=== PATIENT | female | born 1950 | race Caucasian/White ===

== ENCOUNTER 2022-04-02 03:58 | Observation (INO) ==
--- NOTE | 2022-04-02 04:40 | Emergency Department Note ---
Upper Extremity HPI General Chief Complaint: Extremity Injury, Upper Stated Complaint: upper extremity injury Time Seen by Provider: 04/02/22 04:07 Source: patient and EMS Mode of arrival: EMS Limitations: no limitations History of Present Illness HPI Narrative: Narrative: Patient presents to the ED with complaints of left arm pain that started shortly prior to arrival. Apparently patient was over at [facility] and was recently discharged from the ED after a fall where she was diagnosed with UTI and was started him on Macrobid. She was getting out of the cab at her hotel after being discharged when she fell landing on her left arm. Patient is having 10/10 pain in her left arm. EMS was called and they noted deformity so they brought her to our ED instead of going back to [facility]. Patient denies head trauma, loss of consciousness, syncope, near syncope, dizziness, loss of sensation of her left upper extremity, loss of motor function left upper extremity. States it is difficult to move secondary to pain. She reports that she has had left shoulder replacement about 3 years ago over at [facility]. Patient denies any other alleviating or aggravating factors. Related Data Home Medications Medication Instructions Recorded Confirmed aspirin 81 mg tablet,delayed 81 mg PO DAILY 01/12/16 09/15/21 release calcium carbonate 500 mg calcium 500 mg PO BID 03/01/17 09/15/21 (1,250 mg) chewable tablet (Calcium 500) cholecalciferol (vitamin D3) 50 2,000 unit PO DAILY 06/21/18 09/15/21 mcg (2,000 unit) capsule multivitamin with minerals-folic 200 mcg PO DAILY 12/11/18 09/15/21 acid 200 mcg chewable tablet oxycodone 5 mg tablet 5 mg PO Q6H PRN 06/18/21 09/15/21 sodium phosphates 19 gram-7 118 ml MA ONCE PRN 06/18/21 09/15/21 gram/118 mL enema (Fleet Enema) fluoxetine 20 mg capsule 40 mg PO DAILY 08/16/21 09/15/21 Previous Rx's Medication Instructions Recorded lisinopril 10 mg tablet 10 mg PO DAILY #30 tabs 08/03/20 nitrofurantoin 100 mg PO Q12H 5 days #10 caps 07/07/21 monohydrate/macrocrystals 100 mg capsule (Macrobid) allopurinol 100 mg tablet 100 mg PO QDAY #90 tabs 08/11/21 amitriptyline 25 mg tablet 25 mg PO QDAY #90 tabs 08/11/21 atorvastatin 80 mg tablet 80 mg PO DAILY #90 tabs 08/11/21 furosemide 20 mg tablet 20 mg PO DAILY #90 tabs 08/11/21 levothyroxine 100 mcg tablet 100 mcg PO DAILY #90 tabs 08/11/21 hydrocodone 5 mg-acetaminophen 325 1 tab PO QHS PRN pain #30 tabs 11/01/21 mg tablet gabapentin 800 mg tablet 800 mg PO TID #90 tabs 12/06/21 Allergies Allergy/AdvReac Type Severity Reaction Status Date / Time morphine Allergy Hives Verified 04/02/22 04:13 Review of Systems ROS ROS Narrative: Narrative: All systems ED: reviewed and negative except as stated. PFSH Narrative Patient History Narrative: Narrative: Medical/Surgical/Family History All Active Problems (Updated 04/02/22 @ 05:41 by Obdulio Mcdowell DO) Humeral fracture (Acute) Fall (Acute) Unspecified urinary incontinence (Acute) Anxiety state (Chronic) Chronic pain (Chronic) Degenerative joint disease (Chronic) Depressive disorder (Chronic) Gastroesophageal reflux (Chronic) Hypertension, essential (Chronic) Hyperlipidemia (Chronic) Hypothyroidism (Chronic) Insomnia (Chronic) Lumbago (Chronic) Myocardial infarction (Chronic) Obstructive sleep apnea (Chronic) Vitamin D deficiency (Chronic) H/O angioplasty (Chronic) Cobalamin deficiency (Chronic) Hallux valgus (acquired) (Chronic) Mallet toe (Chronic) Onychomycosis (Chronic) Cataract, left eye (Chronic) Presence of intraocular lens (Chronic) Gout (Chronic) Podagra (Chronic) Syncope and Collapse (Chronic) Coronary artery disease due to calcified coronary lesion (Chronic) H/O gastric bypass (Chronic) History of back surgery (Chronic) S/P TRAVIS-BSO (Chronic) H/O hemicolectomy (Chronic) Osteopenia (Chronic) Malaise and fatigue (Chronic) Iron deficiency anemia (Chronic) Right foot pain (Chronic) Right hip pain (Chronic) Low back pain potentially associated with radiculopathy (Chronic) Diabetes mellitus with neuropathy (Chronic) History of obesity (Chronic) History of stroke (Chronic) Lumbar stenosis with neurogenic claudication (Chronic) Chronic kidney disease (CKD) stage G3b/A1, moderately decreased glomerular filtration rate (GFR) between 30-44 mL/min/1.73 square meter and albuminuria creatinine ratio less than 30 mg/g (Chronic) Secondary hyperparathyroidism of renal origin (Chronic) Dysuria (Chronic) Right knee pain (Chronic) Fall (Chronic) Left shoulder pain (Chronic) Left arm weakness (Chronic) Arthritis of shoulder (Chronic) Injury of muscle or tendon of left rotator cuff (Chronic) Radiculopathy of lumbar region (Chronic) Idiopathic peripheral neuropathy (Chronic) Heart disease, unspecified (Chronic) Obesity, unspecified (Chronic) History of tobacco use (Chronic) Acute URI (Chronic) Cystitis (Chronic) UTI (urinary tract infection) (Chronic) COVID-19 (Chronic) 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, subsequent encounter (Chronic) Chronic obstructive pulmonary disease with (acute) exacerbation (Chronic) DM type 2 (diabetes mellitus, type 2) (Chronic) Atherosclerotic heart disease of [place] coronary artery without angina pectoris (Chronic) History of fall (Chronic) Contusion of other part of head, subsequent encounter (Chronic) Sprain of left rotator cuff capsule, subsequent encounter (Chronic) Pressure ulcer of left buttock, unstageable (Chronic) Muscle weakness (generalized) (Chronic) Other abnormalities of gait and mobility (Chronic) Aphasia (Chronic) Heart failure (Chronic) Physical deconditioning (Acute) Medical History Acute URI Adult body mass index 50.0-59.9 03/09/2015 - Corazon Smith, HOUSING CASE MANAGER - [facility] After cataract of left eye not obscuring vision 05/11/2015-[place] Anxiety state Aphasia Arthritis of shoulder Atherosclerotic heart disease of [place] coronary artery without angina pectoris Blepharitis of right upper eyelid 05/11/2015-[place] Blepharitis of right upper eyelid 05/11/2015-[place] Bronchitis Cataract, left eye 05/11/2015-[place] Cholelithiasis Chronic kidney disease Stage 3 06/30/14 Chronic kidney disease (CKD) stage G3b/A1, moderately decreased glomerular filtration rate (GFR) between 30-44 mL/min/1.73 square meter and albuminuria creatinine ratio less than 30 mg/g Chronic obstructive pulmonary disease with (acute) exacerbation Chronic pain Cobalamin deficiency Congestive heart failure LVEF 60% on echo Grade 1 Diastolic dysfunction. Clinically staable. Contusion of other part of head, subsequent encounter Coronary artery disease Coronary artery disease due to calcified coronary lesion Stent x 3. COVID-19 Cystitis Degenerative joint disease Depressive disorder Diabetes mellitus with neuropathy Diabetic foot ulcer 06/14/15-[place]. History of Diarrhea DM type 2 (diabetes mellitus, type 2) Dysuria Elbow sprain Fall Foot pain Leg pain at the site of the Wound vac Treat with hydrocodone 7.5-325 one pill tid, This is not a chr narctic medications but used for acute purpose Gastritis and gastroduodenitis Without mention of hemorrhage, hx of GI bleed r/t NSAID induced Gastroesophageal reflux Gastrointestinal bleeding ulcers had 2 blood transfusions Gout Hallux valgus (acquired) 06/14/15-[place] Heart disease, unspecified Heart failure History of fall History of obesity 200 lb weight loss History of open sigmoidectomy 1980 Resection History of stroke History of tobacco use Hyperlipidemia Hypertension, essential Hypothyroidism Idiopathic peripheral neuropathy Injury of muscle or tendon of left rotator cuff Insomnia Iron deficiency anemia Left arm weakness Left shoulder pain Low back pain potentially associated with radiculopathy Lumbago Lumbar stenosis with neurogenic claudication Malaise and fatigue Mallet toe 06/14/15-[place] Medicare annual wellness visit, initial Morbid obesity Planning to have gastric bypass surgery. Undergoing evaluation, cleared from her glucose and syrup weigher for same. Muscle weakness (generalized) Myocardial infarction with stent placement in 2002 and 2008 Obesity, unspecified Obstructive sleep apnea 02/12/2014 [facility] 79 cpap with nasal mask, heated, 13cms h2o. Onychomycosis 06/14/15-[place] Open wound of knee, leg (except thigh), and ankle 09/03/2013 wound in dressing in the left lower leg, in dressing, seen in ER yesterday, good pulses, no e/o infection in the surrounding area. pulses below good. To be seen in the wound care clinic this sunday with Dr Davis on minocycline for now. Open wound of knee, leg, and ankle 12/29/2013 except leg Osteopenia Other abnormalities of gait and mobility Physical deconditioning Podagra Postsurgical malabsorption 03/09/2015 - Corazon Vulcandy, HOUSING CASE MANAGER - [facility] Presence of intraocular lens 05/11/2015-[place] Pressure ulcer of left buttock, unstageable Radial head fracture Radiculopathy of lumbar region Renal failure 03/31/14 Right foot pain Right hip pain Right knee pain Secondary hyperparathyroidism of renal origin Shortness of breath Sprain and strain of shoulder and upper arm Sprain and strain of wrist Sprain of left rotator cuff capsule, subsequent encounter Syncope and Collapse orthostatic in nature. 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, subsequent e ncounter Ulcer of toe due to diabetes mellitus Pt has two ulcers, one on the right 5th toe, with scab formation, second on the left 2nd toe, both are not infected, but given the overall poor condition of the feet, dystrophic and hypertrophic nails, bunion on the right foot, I think she will benefit from a hadoop admin eval and management. Ref to podiatry. UTI (urinary tract infection) Vitamin D deficiency Wrist sprain Surgical History Abnormal colonoscopy Few small diverticula were present in the cecum. A sessile polyp 4 mm in diameter with hyperplastic in apperance was seen in the mid sigmoid. Uncomp licated hemorroid seen in the rectum. Multiple diverticula were present from the proximal descending colon to distal sigmoid colon. Cholecystectomy planned 12/05/2012 Dr. Guerrero H/O angioplasty 2002, 2008 H/O carpal tunnel repair Right Hand H/O gastric bypass H/O hemicolectomy H/O: hysterectomy History of back surgery History of cataract surgery History of foot surgery Right foot-03/01/19 History of neck surgery ACDF Previous back surgery 3 back surgeries S/P TRAVIS-BSO Family History Unknown Atherosclerosis of coronary artery Essential hypertension unknown Cerebrovascular accident Hypothyroidism Grandmother Cancer Maternal Mother Dementia High blood pressure Daughter Diabetes mellitus Father High blood pressure Social History Smoking Status: Former smoker Alcohol Intake Frequency: does not drink Substance Use: does not use Exam Narrative Narrative: Narrative: General Limitations: no limitations General appearance: Present alert Expanded Head Head image: 1. Contusion 2. Healing laceration Neck Neck: Present tenderness Chest Chest: Present normal inspection; Absent tenderness Respiratory Respiratory: Present normal lung sounds bilaterally; Absent respiratory distress Cardiovascular Cardiovascular: Present regular rate and normal rhythm Adbominal Abdominal: Present soft; Absent tenderness Expanded Upper Extremity Shoulder: Present tenderness Arm: Present tenderness and deformity Elbow: Present normal inspection Neurological Neurological: Present alert and oriented X3 Psychiatric Psychiatric: Present normal affect and normal mood Skin Skin: Present warm (WNL) and intact Course Course Course Narrative: Patient was evaluated for left arm pain. X-rays show the patient had a periprosthetic comminuted displaced humeral fracture. Case was discussed with on-call orthopedic surgeon, Dr. Choe who recommend that patient be placed in a sling to follow-up with surgeon who previously did her left shoulder replacement, Dr. Feldman. Unfortunate patient uses a walker and cannot ambulate with a fractured arm. Our hospitalist are capped out on their patient census. Attempted to transfer patient over to [facility] where she had her previous surgery and where she was seen earlier tonight but unfortunately they do not have any beds available. Patient will be housed in the ED. Case management has been consulted. We will go ahead and consult hospitalist for medical management of patient's comorbid conditions. Plan was discussed with patient and she expressed verbal understanding and agreement. Case signed out to Dr. Foy to determine final disposition. Reevaluation(s) Reevaluation #1: Patient remains hemodynamically stable. No new complaints at this time. Time: 05:10 Consultations Consultation #1: Case discussed with on-call orthopedic surgeon, Dr. Choe, who recommends that patient simply be placed in a sling and discharged home to follow-up with the surgeon who performed her shoulder replacement, Dr. Thomas Time: 05:20 Consultation #2: Case discussed with Dr. Pierce, hospitalist, who has agreed to consult on patient for medical management of her comorbid conditions Time: 06:48 Vital Signs Vital signs: Vital Signs Temperature 97.9 F 04/02/22 04:10 Pulse Rate 74 04/02/22 04:10 Respiratory Rate 20 04/02/22 04:10 Blood Pressure 156/114 04/02/22 04:10 Pulse Oximetry (%) 100 04/02/22 04:10 Oxygen Delivery Method 04/02/22 04:10 Temperature 97.9 F 04/02/22 04:10 Pulse Rate 65 04/02/22 06:38 Respiratory Rate 20 04/02/22 04:10 Blood Pressure 153/95 04/02/22 06:33 Pulse Oximetry (%) 98 04/02/22 06:38 Oxygen Delivery Method 04/02/22 04:10 [facility] Narrative Medical decision making narrative: Narrative: Differential Diagnosis Differential Diagnosis: Arm fracture Medical Records Medical records reviewed: Yes I reviewed the patient's medical records. Lab Data Lab results reviewed: Yes I reviewed the patient's lab results. Result diagrams: 04/02/22 05:04 Labs: Lab Results 04/02/22 04/02/22 Range/Units 05:04 05:09 WBC 6.4 (4.5-11.0) K/mcL RBC 3.61 (3.59-5.38) M/mcL Hgb 9.8 L (11.2-15.7) g/dL Hct 33.1 L (34.1-44.9) % POC Hct 31.0 L (36-48) MCV 91.7 (80.0-100.0) fL MCH 27.1 (26.0-34.0) pg MCHC 29.6 L (31.0-36.0) g/dL RDW 17.8 H (11.5-14.5) % Plt Count 183 (140-440) K/mcL MPV 10.0 (8.8-12.5) fL Immature Gran % (Auto) 0.3 (0.0-0.5) % Neut % (Auto) 60.0 (38.0-78.0) % Lymph % (Auto) 27.8 (15.5-49.0) % [place] % (Auto) 8.0 (1.0-12.0) % Eos % (Auto) 3.4 (0.0-7.0) % Baso % (Auto) 0.5 (0.0-2.0) % Lymph # (Auto) 1.78 (1.50-4.80) K/mcL [place] # (Auto) 0.51 (0.10-0.90) K/mcL Eos # (Auto) 0.22 (0.00-0.70) K/mcL Baso # (Auto) 0.03 (0.00-0.30) K/mcL Immature Gran # 0.02 (0.00-0.05) K/mcl Absolute Neutrophils 3.85 (1.80-8.00) K/mcL POC Sodium 140 (133-145) POC Potassium 3.3 (3.3-5.1) POC Chloride 105 (96-108) POC Total CO2 24.0 (22-30) POC BUN 16 (6-20) POC Creatinine 1.7 H (0.6-1.2) POC Glucose 91 (70-105) POC WB Ioniz Calcium 1.09 L (1.16-1.32) Radiology Data Radiology results reviewed: Yes I reviewed the patient's radiology results. Radiology results narrative: Left shoulder and humeral x-rays obtained with image reviewed myself which show an acute periprosthetic comminuted and displaced fracture involving the mid to lateral shaft Core Measures AMI Core Measures Followed: Yes Discharge Plan Patient/Caregiver Discharge Instructions Pt seen by SENIOR QUALITATIVE RESEARCHER/PA only: No Clinical Impression: Humeral fracture Qualifiers: Encounter type: initial encounter Humerus Location: shaft Fracture type: closed Fracture morphology: comminuted Fracture alignment: displaced Laterality: left Qualified Code(s): S42.352A - Displaced comminuted fracture of shaft of humerus, left arm, initial encounter for closed fracture Fall Qualifiers: Encounter type: initial encounter Qualified Code(s): W19.XXXA - Unspecified fall, initial encounter Patient Disposition: Still a Patient Condition: Fair Follow up with: Crispin Thomas MD [Physician] - 04/06/22 (Left periprosthetic comminuted and displaced fracture of the mid to lateral humeral shaft) Mamadou Faulkner ARNP [Primary Care Provider] - Prescriptions: No Action nitrofurantoin monohyd/m-cryst [Macrobid] 100 mg capsule 100 mg PO Q12H 5 Days Qty: 10 0RF Rx Instructions: must administer with a meal/food levothyroxine 100 mcg tablet 100 mcg PO DAILY Qty: 90 1RF atorvastatin 80 mg tablet 80 mg PO DAILY Qty: 90 1RF allopurinol 100 mg tablet 100 mg PO QDAY Qty: 90 1RF amitriptyline 25 mg tablet 25 mg PO QDAY Qty: 90 1RF furosemide 20 mg tablet 20 mg PO DAILY Qty: 90 1RF hydrocodone-acetaminophen 5-325 mg tablet 1 tab PO QHS PRN (Reason: pain) Qty: 30 0RF gabapentin 800 mg tablet 800 mg PO TID Qty: 90 0RF lisinopril 10 mg tablet 10 mg PO DAILY Qty: 30 2RF Fleet Enema 19-7 gram/118 mL enema 118 ml MA ONCE PRN oxycodone 5 mg tablet 5 mg PO Q6H PRN aspirin 81 mg tablet,delayed release (DR/EC) 81 mg PO DAILY calcium carbonate [Calcium 500] 500 mg calcium (1,250 mg) tablet,chewable 500 mg PO BID cholecalciferol (vitamin D3) 2,000 unit capsule 2,000 unit PO DAILY fluoxetine 20 mg capsule 40 mg PO DAILY multivit with min-folic acid 200 MCG tablet,chewable 200 mcg PO DAILY
[2022-04-02] MEDS ORDERED: fentaNYL 100 MCG/2 ML VIAL IV ONE (05:05)
[2022-04-02 05:14] LABS: POC Calcium, Ionized 1.09 (1.16-1.32); POC Creatinine 1.7 (0.6-1.2); POC Potassium 3.3 (3.3-5.1)
[2022-04-02 05:34] LABS: Basophils # (Auto) 0.03 K/mcL (0.00-0.30); Basophils % (Auto) 0.5 % (0.0-2.0); Eosinophils # (Auto) 0.22 K/mcL (0.00-0.70); Eosinophils % (Auto) 3.4 % (0.0-7.0); Hematocrit 33.1 % (34.1-44.9); Hemoglobin 9.8 g/dL (11.2-15.7); Lymphocytes # (Auto) 1.78 K/mcL (1.50-4.80); Lymphocytes % (Auto) 27.8 % (15.5-49.0); Mean Cell Volume 91.7 fL (80.0-100.0); Mean Corpuscular HGB Conc 29.6 g/dL (31.0-36.0); Monocytes # (Auto) 0.51 K/mcL (0.10-0.90); Platelet Count 183 K/mcL (140-440); RBC 3.61 M/mcL (3.59-5.38); Red Cell Distribution Width 17.8 % (11.5-14.5); WBC 6.4 K/mcL (4.5-11.0)
--- NOTE | 2022-04-02 06:47 | XRay Report ---
INDICATION: pain, fall TECHNIQUE: AP left shoulder. AP left humerus. COMPARISON: None. FINDINGS: Examination was initially interpreted by [facility]. Previous left reverse shoulder arthroplasty. Alignment is anatomic. No dislocation. Scapula and clavicle are negative. Mildly comminuted periprosthetic fracture at the tip of the humeral stem. There is radial angulation deformity. IMPRESSION: 1. Previous left reverse shoulder arthroplasty 2. Mildly comminuted and angulated periprosthetic left humeral diaphyseal fracture. Interpreted and Authenticated by: Angelo Morley 04/02/22
--- NOTE | 2022-04-02 07:37 | Emergency Department Note ---
Course Course Course Narrative: Care from Dr. Mcdowell. Patient has left to humerus fracture and multiple medical problems as well as requires a home care. Patient is waiting hospitalization please see Dr. Chiu's note for details "Narrative: Patient presents to the ED with complaints of left arm pain that started shortly prior to arrival. Apparently patient was over at [facility] and was recently discharged from the ED after a fall where she was diagnosed with UTI and was started him on Macrobid. She was getting out of the cab at her hotel after being discharged when she fell landing on her left arm. Patient is having 10/10 pain in her left arm. EMS was called and they noted deformity so they brought her to our ED instead of going back to [facility]. Patient denies head trauma, loss of consciousness, syncope, near syncope, dizziness, loss of sensation of her left upper extremity, loss of motor function left upper extremity. States it is difficult to move secondary to pain. She reports that she has had left shoulder replacement about 3 years ago over at [facility]. Patient denies any other alleviating or aggravating factors" "Course Course Narrative: Patient was evaluated for left arm pain. X-rays show the patient had a periprosthetic comminuted displaced humeral fracture. Case was discussed with on-call orthopedic surgeon, Dr. Choe who recommend that patient be placed in a sling to follow-up with surgeon who previously did her left shoulder replacement, Dr. Feldman. Unfortunate patient uses a walker and cannot ambulate with a fractured arm. Our hospitalist are capped out on their patient census. Attempted to transfer patient over to [facility] where she had her previous surgery and where she was seen earlier tonight but unfortunately they do not have any beds available. Patient will be housed in the ED. Case management has been consulted. We will go ahead and consult hospitalist for medical management of patient's comorbid conditions. Plan was discussed with patient and she expressed verbal understanding and agreement" F/U: Orthopedic PA splinted left humerus in the ER. Patient is awaiting admission and follow-up with orthopedic. Patient was admitted for placement Vital Signs Vital signs: Vital Signs Temperature 97.9 F 04/02/22 04:10 Pulse Rate 74 04/02/22 04:10 Respiratory Rate 20 04/02/22 04:10 Blood Pressure 156/114 04/02/22 04:10 Pulse Oximetry (%) 100 10/02/22 04:10 Oxygen Delivery Method 04/02/22 04:10 Temperature 97.9 F 04/02/22 15:45 Pulse Rate 71 04/02/22 15:45 Respiratory Rate 18 04/02/22 15:45 Blood Pressure 143/82 04/02/22 15:45 Pulse Oximetry (%) 96 04/02/22 15:45 Oxygen Delivery Method 04/02/22 15:45 MDM MDM Narrative Medical decision making narrative: Narrative: Lab Data Result diagrams: 04/02/22 05:04 04/02/22 05:04 Labs: Lab Results 04/02/22 04/02/22 04/02/22 Range/Units 05:04 05:04 05:09 WBC 6.4 (4.5-11.0) K/mcL RBC 3.61 (3.59-5.38) M/mcL Hgb 9.8 L (11.2-15.7) g/dL Hct 33.1 L (34.1-44.9) % POC Hct 31.0 L (36-48) MCV 91.7 (80.0-100.0) fL MCH 27.1 (26.0-34.0) pg MCHC 29.6 L (31.0-36.0) g/dL RDW 17.8 H (11.5-14.5) % Plt Count 183 (140-440) K/mcL MPV 10.0 (8.8-12.5) fL Immature Gran % (Auto) 0.3 (0.0-0.5) % Neut % (Auto) 60.0 (38.0-78.0) % Lymph % (Auto) 27.8 (15.5-49.0) % [place] % (Auto) 8.0 (1.0-12.0) % Eos % (Auto) 3.4 (0.0-7.0) % Baso % (Auto) 0.5 (0.0-2.0) % Lymph # (Auto) 1.78 (1.50-4.80) K/mcL [place] # (Auto) 0.51 (0.10-0.90) K/mcL Eos # (Auto) 0.22 (0.00-0.70) K/mcL Baso # (Auto) 0.03 (0.00-0.30) K/mcL Immature Gran # 0.02 (0.00-0.05) K/mcl Absolute Neutrophils 3.85 (1.80-8.00) K/mcL POC Sodium 140 (133-145) Sodium 138 (133-145) mmol/L POC Potassium 3.3 (3.3-5.1) Potassium 3.4 (3.3-5.1) mmol/L POC Chloride 105 (96-108) Chloride 101 (96-108) mmol/L Carbon Dioxide 25 (22-30) mmol/L POC Total CO2 24.0 (22-30) Anion Gap 12.0 (8.0-16.0) POC BUN 16 (6-20) BUN 17 (8-23) mg/dL Creatinine 1.7 H (0.6-1.1) mg/dL POC Creatinine 1.7 H (0.6-1.2) GFR Calculation 29 Glucose 90 (70-105) mg/dL POC Glucose 91 (70-105) Hemoglobin A1c 5.1 (4.0-6.0) % Hgb Estim Average Glucose 100 mg/dL Calcium 9.3 (8.6-10.4) mg/dL POC WB Ioniz Calcium 1.09 L (1.16-1.32) Phosphorus 2.5 (2.5-4.5) mg/dL Albumin 4.0 (3.2-5.2) gm/dL Discharge Plan Patient/Caregiver Discharge Instructions Pt seen by CASH CONTROL SPECIALIST/PA only: No Clinical Impression: Humeral fracture Qualifiers: Encounter type: initial encounter Humerus Location: shaft Fracture type: closed Fracture morphology: comminuted Fracture alignment: displaced Laterality: left Qualified Code(s): S42.352A - Displaced comminuted fracture of shaft of humerus, left arm, initial encounter for closed fracture Fall Qualifiers: Encounter type: initial encounter Qualified Code(s): W19.XXXA - Unspecified fall, initial encounter Patient Disposition: Xfer As Inpt ([facility]) Condition: Fair Discharge Date/Time: 04/02/22 10:51
--- NOTE | 2022-04-02 09:30 | Internal Med History&Physical ---
HPI History of Present Illness Patient information: Note initiated : 04/02/22 at 9:26 am Service Date, if different from initiated Date: [] Patient: Rosa Mariee a 71 y/o F admitted on for upper extremity injury. Chief Complaint: [] History of present illness: Ms. Mariee is a 71 year old F Patient who recently was that [facility] for ground-level fall diagnosed T3-T4 compression fracture and UTI is d/c home and had another ground-level fall with deformity left upper arm She was getting out of a cab at her hotel after being discharged and she fell on her left arm. X-rays in the ED showed a periprosthetic comminuted displaced humeral fracture. Case discussed with Dr. Choe recommended patient be placed in sling and follow-up with surgeon who previously did her shoulder replacement Dr. Thomas. Patient unable ambulates as she requires a walker, given her fractured arm. ED requested admission for placement. Patient has headaches and dysuria but denies any other acute complaints. Does see Dr. Vaz for kidneys but has not seen him in at least a year. Creatinine in the ED was 1.7, unknown baseline. Review of Systems: Pertinent positives as above. Denies headache/fever/chills/nausea/vomiting/chest or abdominal pain/cough/dyspnea /diarrhea. Remaining 10 point review of system reviewed negative. PFSH PFSH All Active Problems (Updated 04/02/22 @ 05:41 by Obdulio Mcdowell DO) Humeral fracture (Acute) Fall (Acute) Unspecified urinary incontinence (Acute) Anxiety state (Chronic) Chronic pain (Chronic) Degenerative joint disease (Chronic) Depressive disorder (Chronic) Gastroesophageal reflux (Chronic) Hypertension, essential (Chronic) Hyperlipidemia (Chronic) Hypothyroidism (Chronic) Insomnia (Chronic) Lumbago (Chronic) Myocardial infarction (Chronic) Obstructive sleep apnea (Chronic) Vitamin D deficiency (Chronic) H/O angioplasty (Chronic) Cobalamin deficiency (Chronic) Hallux valgus (acquired) (Chronic) Mallet toe (Chronic) Onychomycosis (Chronic) Cataract, left eye (Chronic) Presence of intraocular lens (Chronic) Gout (Chronic) Podagra (Chronic) Syncope and Collapse (Chronic) Coronary artery disease due to calcified coronary lesion (Chronic) H/O gastric bypass (Chronic) History of back surgery (Chronic) S/P TRAVIS-BSO (Chronic) H/O hemicolectomy (Chronic) Osteopenia (Chronic) Malaise and fatigue (Chronic) Iron deficiency anemia (Chronic) Right foot pain (Chronic) Right hip pain (Chronic) Low back pain potentially associated with radiculopathy (Chronic) Diabetes mellitus with neuropathy (Chronic) History of obesity (Chronic) History of stroke (Chronic) Lumbar stenosis with neurogenic claudication (Chronic) Chronic kidney disease (CKD) stage G3b/A1, moderately decreased glomerular filtration rate (GFR) between 30-44 mL/min/1.73 square meter and albuminuria creatinine ratio less than 30 mg/g (Chronic) Secondary hyperparathyroidism of renal origin (Chronic) Dysuria (Chronic) Right knee pain (Chronic) Fall (Chronic) Left shoulder pain (Chronic) Left arm weakness (Chronic) Arthritis of shoulder (Chronic) Injury of muscle or tendon of left rotator cuff (Chronic) Radiculopathy of lumbar region (Chronic) Idiopathic peripheral neuropathy (Chronic) Heart disease, unspecified (Chronic) Obesity, unspecified (Chronic) History of tobacco use (Chronic) Acute URI (Chronic) Cystitis (Chronic) UTI (urinary tract infection) (Chronic) COVID-19 (Chronic) 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, subsequent encounter (Chronic) Chronic obstructive pulmonary disease with (acute) exacerbation (Chronic) DM type 2 (diabetes mellitus, type 2) (Chronic) Atherosclerotic heart disease of [place] coronary artery without angina pectoris (Chronic) History of fall (Chronic) Contusion of other part of head, subsequent encounter (Chronic) Sprain of left rotator cuff capsule, subsequent encounter (Chronic) Pressure ulcer of left buttock, unstageable (Chronic) Muscle weakness (generalized) (Chronic) Other abnormalities of gait and mobility (Chronic) Aphasia (Chronic) Heart failure (Chronic) Physical deconditioning (Acute) Medical History Acute URI Adult body mass index 50.0-59.9 03/09/2015 - [facility] After cataract of left eye not obscuring vision 05/11/2015-[facility] Anxiety state Aphasia Arthritis of shoulder Atherosclerotic heart disease of [place] coronary artery without angina pectoris Blepharitis of right upper eyelid 05/11/2015-[facility] Blepharitis of right upper eyelid 05/11/2015-[facility] Bronchitis Cataract, left eye 05/11/2015-[facility] Cholelithiasis Chronic kidney disease Stage 3 06/30/14 Chronic kidney disease (CKD) stage G3b/A1, moderately decreased glomerular filtration rate (GFR) between 30-44 mL/min/1.73 square meter and albuminuria creatinine ratio less than 30 mg/g Chronic obstructive pulmonary disease with (acute) exacerbation Chronic pain Cobalamin deficiency Congestive heart failure LVEF 60% on echo Grade 1 Diastolic dysfunction. Clinically staable. Contusion of other part of head, subsequent encounter Coronary artery disease Coronary artery disease due to calcified coronary lesion Stent x 3. COVID-19 Cystitis Degenerative joint disease Depressive disorder Diabetes mellitus with neuropathy Diabetic foot ulcer 06/14/15-[place]. History of Diarrhea DM type 2 (diabetes mellitus, type 2) Dysuria Elbow sprain Fall Foot pain Leg pain at the site of the Wound vac Treat with hydrocodone 7.5-325 one pill tid, This is not a chr narctic medications but used for acute purpose Gastritis and gastroduodenitis Without mention of hemorrhage, hx of GI bleed r/t NSAID induced Gastroesophageal reflux Gastrointestinal bleeding ulcers had 2 blood transfusions Gout Hallux valgus (acquired) 06/14/15[facility] Heart disease, unspecified Heart failure History of fall History of obesity 200 lb weight loss History of open sigmoidectomy 1980 Resection History of stroke History of tobacco use Hyperlipidemia Hypertension, essential Hypothyroidism Idiopathic peripheral neuropathy Injury of muscle or tendon of left rotator cuff Insomnia Iron deficiency anemia Left arm weakness Left shoulder pain Low back pain potentially associated with radiculopathy Lumbago Lumbar stenosis with neurogenic claudication Malaise and fatigue Mallet toe 06/14/15[place] Medicare annual wellness visit, initial Morbid obesity Planning to have gastric bypass surgery. 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 Muscle weakness (generalized) Myocardial infarction with stent placement in 2002 and 2008 Obesity, unspecified Obstructive sleep apnea 02/12/2014 [facility] 79 cpap with nasal mask, heated, 13cms h2o. Onychomycosis 06/14/15-[place] Open wound of knee, leg (except thigh), and ankle 09/03/2013 wound in dressing in the left lower leg, in dressing, seen in ER yesterday, good pulses, no e/o infection in the surrounding area. pulses below good. To be seen in the wound care clinic this sunday with Dr Davis on minocycline for now. Open wound of knee, leg, and ankle 12/29/2013 except leg Osteopenia Other abnormalities of gait and mobility Physical deconditioning Podagra Postsurgical malabsorption 03/09/2015 - [facility] Presence of intraocular lens 05/11/2015-[facility] Pressure ulcer of left buttock, unstageable Radial head fracture Radiculopathy of lumbar region Renal failure 03/31/14 Right foot pain Right hip pain Right knee pain Secondary hyperparathyroidism of renal origin Shortness of breath Sprain and strain of shoulder and upper arm Sprain and strain of wrist Sprain of left rotator cuff capsule, subsequent encounter Syncope and Collapse orthostatic in nature. 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, subsequent encounter Ulcer of toe due to diabetes mellitus Pt has two ulcers, one on the right 5th toe, with scab formation, second on the left 2nd toe, both are not infected, but given the overall poor condition of the feet, dystrophic and hypertrophic nails, bunion on the right foot, I think she will benefit from a product manager medical device eval and management. Ref to podiatry. UTI (urinary tract infection) Vitamin D deficiency Wrist sprain Surgical History Abnormal colonoscopy Few small diverticula were present in the cecum. A sessile polyp 4 mm in diameter with hyperplastic in apperance was seen in the mid sigmoid. Uncomplicated hemorroid seen in the rectum. Multiple diverticula were present from the proximal descending colon to distal sigmoid colon. Cholecystectomy planned 12/05/2012 Dr. Guerrero H/O angioplasty 2002, 2008 H/O carpal tunnel repair Right Hand H/O gastric bypass H/O hemicolectomy H/O: hysterectomy History of back surgery History of cataract surgery History of foot surgery Right foot-03/01/19 History of neck surgery ACDF Previous back surgery 3 back surgeries S/P TRAVIS-BSO Family History Unknown Atherosclerosis of coronary artery Essential hypertension unknown Cerebrovascular accident Hypothyroidism Grandmother Cancer Maternal Mother Dementia High blood pressure Daughter Diabetes mellitus Father High blood pressure Social History marital status: smoking status: Never smoker smoking status start date: 12/08/86 smoking status stop date: 12/03/00 alcohol intake frequency: does not drink substance use type: does not use MEDS/ALLERGIES Home Medications and Allergies Home Medications Medication Instructions Recorded Confirmed Type aspirin 81 mg tablet,delayed 81 mg PO DAILY 01/12/16 04/02/22 History release calcium carbonate 500 mg calcium 500 mg PO BID 03/01/17 04/02/22 History (1,250 mg) chewable tablet (Calcium 500) cholecalciferol (vitamin D3) 50 2,000 unit PO DAILY 06/21/18 04/02/22 History mcg (2,000 unit) capsule multivitamin with minerals-folic 200 mcg PO DAILY 12/11/18 04/02/22 History acid 200 mcg chewable tablet lisinopril 10 mg tablet 10 mg PO DAILY #30 tabs 08/03/20 04/02/22 Rx allopurinol 100 mg tablet 100 mg PO QDAY #90 tabs 08/11/21 04/02/22 Rx amitriptyline 25 mg tablet 25 mg PO QDAY #90 tabs 08/11/21 04/02/22 Rx atorvastatin 80 mg tablet 80 mg PO DAILY #90 tabs 08/11/21 04/02/22 Rx furosemide 20 mg tablet 20 mg PO DAILY #90 tabs 08/11/21 04/02/22 Rx fluoxetine 20 mg capsule 40 mg PO DAILY 08/16/21 04/02/22 History hydrocodone 5 mg-acetaminophen 325 1 tab PO QHS PRN pain #30 tabs 11/01/21 04/02/22 Rx mg tablet gabapentin 800 mg tablet 800 mg PO TID #90 tabs 12/06/21 04/02/22 Rx levothyroxine 100 mcg tablet 125 mcg PO DAILY 04/02/22 04/02/22 History Allergies Allergy/AdvReac Type Severity Reaction Status Date / Time morphine Allergy Hives Verified 04/02/22 04:13 EXAM Constitutional Vitals: Temp Pulse Resp BP Pulse Ox O2 Del Method 97.9 F 65 20 161/95 98 04/02/22 04:10 04/02/22 06:38 04/02/22 04:10 04/02/22 08:16 04/02/22 06:38 04/02/22 04:10 Exam: General: Alert, Awake, No acute Distress, obese Eyes/N/T: EOMI, PERRL, Head/Neck: neck supple, normocephalic atraumatic CV: RRR, No murmurs, normal s1/s2 Pulm: Clear b/l, no wheezing/rhonchi/rales Abd: soft, nontender, +BS x4 Ext: no clubbing/cyanosis/edema. Left arm in a sling Neuro: Alert, no focal deficits, moves all extremities, CN 2-12 grossly intact, sensations intact b/l upper/lower Skin: warm/dry DATA Data Completed and Pending Labs: Labs from last 24 hours 04/02/22 04/02/22 05:09 05:04 WBC 6.4 RBC 3.61 Hgb 9.8 L Hct 33.1 L POC Hct 31.0 L MCV 91.7 MCH 27.1 MCHC 29.6 L RDW 17.8 H Plt Count 183 MPV 10.0 Immature Gran % (Auto) 0.3 Neut % (Auto) 60.0 Lymph % (Auto) 27.8 [place] % (Auto) 8.0 Eos % (Auto) 3.4 Baso % (Auto) 0.5 Lymph # (Auto) 1.78 [place] # (Auto) 0.51 Eos # (Auto) 0.22 Baso # (Auto) 0.03 Immature Gran # 0.02 Absolute Neutrophils 3.85 POC Sodium 140 POC Potassium 3.3 POC Chloride 105 POC Total CO2 24.0 POC BUN 16 POC Creatinine 1.7 H POC Glucose 91 POC WB Ioniz Calcium 1.09 L A/P Narrative A/P Narrative: A: *Left UE Fx: *Generalized weakness/deconditioning/debility: *?CUCO on CKD IIIb-IV: [facility] baseline *Anemia, chronic: *UTI: Diagnosed at [facility] yesterday and started on Macrobid *CAD w/stent: *h/o diastolic(I) CHF: *Obesity: BMI 34 *VANESSA: *HTN/HLD: *Chronic pain: *Depression/anxiety: *Hypothyroidism: P: -Per Ortho, placed in sling and follow-up outpatient -IVF -Continue antibiotics for UTI, UC from [facility] -Follow-up renal function -hold lasix and acei for now -cont asa/statin -PT/OT -CM for placement -ppx: Lovenox Time Spent With Patient Time: Total time spent is greater than 50% in coordination of care (as documented) at patient's floor/unit and/or counseling patient: Total time spent with greater than 50% in coordination of care (as documented) at patient's floor/unit and/or counseling patient:: 50 - 70 minutes
[2022-04-02] MEDS ORDERED: cefTRIAXone 1 GM in DEXTROSE 5% IN WATER 50 ML IV SCH (09:45)
[2022-04-02] MEDS ORDERED: POTASSIUM CHLORIDE 40 MEQ in DEXTROSE 5% IN WATER 500 ML IV PRN (09:45)
[2022-04-02] MEDS ORDERED: SENNOSIDES 1 TABLET PO PRN (09:45)
[2022-04-02] MEDS ORDERED: POLYETHYLENE GLYCOL 3350 17 GM PACKET PO PRN (09:45)
[2022-04-02] MEDS ORDERED: METOCLOPRAMIDE 10 MG/2 ML VIAL IV PRN (09:45)
[2022-04-02] MEDS ORDERED: ONDANSETRON 4 MG/2 ML VIAL IV PRN (09:45)
[2022-04-02] MEDS ORDERED: LABETALOL 5 MG/ML ML IV PRN (09:45)
[2022-04-02] MEDS ORDERED: MAGNESIUM SULFATE 2 GM/50 ML BAG IV PRN (09:45)
[2022-04-02] MEDS ORDERED: IPRATROPIUM/ALBUTEROL 3 ML AMPUL.NEB NEB PRN (09:45)
[2022-04-02] MEDS ORDERED: POTASSIUM CHLORIDE 20 MEQ TABLET PO PRN ×2 (09:45)
[2022-04-02] MEDS ORDERED: 0.9 % SODIUM CHLORIDE 1,000 ML IV ONE (09:47)
[2022-04-02] MEDS: cefTRIAXone 1 GM VIAL IV SCH (10:14)
[2022-04-02 10:18] LABS: Calcium 9.3 mg/dL (8.6-10.4); Phosphorous 2.5 mg/dL (2.5-4.5)
[2022-04-02 10:26] LABS: Hemoglobin A1C 5.1 % Hgb (4.0-6.0)
[2022-04-02] MEDS: fentaNYL 100 MCG/2 ML VIAL IV PRN ×2 (12:00→15:03)
[2022-04-02] MEDS: 0.9 % SODIUM CHLORIDE 10 ML SYRINGE IV SCH ×2 (12:49→20:08)
[2022-04-02] MEDS: GABAPENTIN 400 MG CAPSULE PO SCH ×2 (14:34→20:09)
[2022-04-02] MEDS: HYDROcodone/APAP 5/325MG TABLET PO PRN ×2 (16:40→20:08)
[2022-04-02] MEDS: DOCUSATE SODIUM 100 MG CAPSULE PO SCH (20:09)
[2022-04-03] MEDS: 0.9 % SODIUM CHLORIDE 10 ML SYRINGE IV SCH ×3 (05:54→21:05)
[2022-04-03 06:58] LABS: Basophils # (Auto) 0.03 K/mcL (0.00-0.30); Basophils % (Auto) 0.6 % (0.0-2.0); Eosinophils # (Auto) 0.26 K/mcL (0.00-0.70); Eosinophils % (Auto) 4.8 % (0.0-7.0); Hematocrit 25.8 % (34.1-44.9); Hemoglobin 7.9 g/dL (11.2-15.7); Lymphocytes # (Auto) 1.81 K/mcL (1.50-4.80); Lymphocytes % (Auto) 33.3 % (15.5-49.0); Mean Corpuscular HGB Conc 30.6 g/dL (31.0-36.0); Mean Platelet Volume 10.3 fL (8.8-12.5); Monocytes % (Auto) 9.2 % (1.0-12.0); Neutrophils % (Auto) 51.7 % (38.0-78.0); Platelet Count 166 K/mcL (140-440); WBC 5.4 K/mcL (4.5-11.0)
[2022-04-03] MEDS: LEVOTHYROXINE 125 MCG TABLET PO SCH (07:05)
--- NOTE | 2022-04-03 07:11 | Internal Med Progress Note ---
SUBJECTIVE Subjective Patient information: Note initiated : 04/03/22 at 7:08 am Service Date, if different from initiated Date: [] Patient: Rosa Mariee a 71 y/o F admitted on 04/02/22 for upper extremity injury. Chief Complaint: [] Interval history: History of present illness: Ms. Mariee is a 71 year old F Patient who recently was that [facility] for ground-level fall diagnosed T3-T4 compression fracture and UTI is d/c home and had another ground-level fall with deformity left upper arm She was getting out of a cab at her hotel after being discharged and she fell on her left arm. X-rays in the ED showed a periprosthetic comminuted displaced humeral fracture. Case discussed with Dr. Choe recommended patient be placed in sling and follow-up with surgeon who previously did her shoulder replacement Dr. Thomas. Patient unable ambulates as she requires a walker, given her fractured arm. ED requested admission for placement. Patient has headaches and dysuria but denies any other acute complaints. Does see Dr. Vaz for kidneys but has not seen him in at least a year. Creatinine in the ED was 1.7, unknown baseline. 04/03 Feeling a little better today. No overnight event or new complaints. Awaiting chemistry. Delusional anemia noted. Review of Systems: denies headache/fever/chills/nausea/vomiting/chest or abdominal pain/cough/ dyspnea/diarrhea. Otherwise see above. Constitutional Vitals: Vital Signs Temp Pulse Resp BP Pulse Ox O2 Del Method 97.9 F 74 16 116/76 95 04/03/22 02:59 04/03/22 02:59 04/03/22 02:59 04/03/22 02:59 04/03/22 02:59 04/03/22 02:59 Period Temp Pulse Resp BP Sys/Sánchez Pulse Ox O2 Del Method O2 Flow Rate Last 24 Hr 97.1 F-97.9 F 71-85 16-18 116-166/76-98 93-96 Room Air-Room Air Intake and Output 04/02/22 04/03/22 04/03/22 21:59 05:59 13:59 Intake Total 1480 120 Output Total 1 Balance 1479 120 Weight 88.195 kg Intake & Output: Intake & Output 04/02/22 04/03/22 04/03/22 21:59 05:59 13:59 Intake Total 1480 120 Output Total 1 Balance 1479 120 Weight 88.195 kg Intake: IV 1000 Sodium Chloride 0.9% 1,000 ml @ 1000 100 mls/hr IV .Q10H ONE Rx#: [id number] Oral 480 120 Output: # of times incontinent of urine 1 Other: Meal Lunch Percent of Meal Consumed 100% Feeding Ability Assist with Tray Set Up Urine Odor Normal # Voids 1 Exam: General: Alert, Awake, No acute Distress, obese Eyes/N/T: EOMI, Head/Neck: neck supple, CV: RRR, 1/6SM, Pulm: Clear b/l, no wheezing/rhonchi/rales Abd: soft, nontender, +BS x4 Ext: no clubbing/cyanosis/edema. Left arm in a sling Neuro: Alert, no focal deficits, moves all extremities, Skin: warm/dry OBJ DATA Labs CBC & Chem 7: 04/03/22 05:47 04/02/22 05:04 Labs: Abnormal Lab Results 04/03/22 04/02/22 04/02/22 05:47 05:09 05:04 RBC 2.90 L Hgb 7.9 L Hct 25.8 L POC Hct 31.0 L MCHC 30.6 L RDW 18.0 H Creatinine 1.7 H POC Creatinine 1.7 H POC WB Ioniz Calcium 1.09 L 04/02/22 05:04 RBC Hgb 9.8 L Hct 33.1 L POC Hct MCHC 29.6 L RDW 17.8 H Creatinine POC Creatinine POC WB Ioniz Calcium Meds: Medications Acetaminophen (Acetaminophen 325 Mg Tablet) 650 mg PO Q6HP PRN; Protocol PRN Reason: Per Pain Protocol/Fever > 101 Hydrocodone Bitart/Acetaminophen (Hydrocodone/Apap 5/325mg Tablet) 1 tab PO QHS PRN PRN Reason: Pain Last Admin: 04/02/22 20:08 Dose: 1 tab Albuterol/Ipratropium (Ipratropium/Albuterol 3 Ml Ampul.Neb) 3 ml NEB Q4HP PRN PRN Reason: Shortness Of Breath Allopurinol (Allopurinol 100 Mg Tablet) 100 mg PO QDAY [facility] Amitriptyline HCl (Amitriptyline 25 Mg Tablet) 25 mg PO QDAY [facility] Aspirin (Aspirin 81 Mg Tab.Chew) 81 mg PO DAILY [facility] Atorvastatin Calcium (Atorvastatin 40 Mg Tablet) 80 mg PO DAILY [facility] Ceftriaxone Sodium (Ceftriaxone 1 Gm Vial) 1 gm IV Q24H [facility] Last Admin: 04/02/22 10:14 Dose: 1 gm Docusate Sodium (Docusate Sodium 100 Mg Capsule) 100 mg PO BID [facility] Last Admin: 04/02/22 20:09 Dose: 100 mg Enoxaparin Sodium (Enoxaparin 40 Mg/0.4 Ml Syringe) 40 mg SQ DAILY [facility] Fentanyl (Fentanyl 100 Mcg/2 Ml Vial) 25 - 50 mcg IV Q2HP PRN; Protocol PRN Reason: Per Pain Protocol Last Admin: 04/02/22 15:03 Dose: 50 mcg Fluoxetine HCl (Fluoxetine Hcl 20 Mg Capsule) 40 mg PO DAILY [facility] Gabapentin (Gabapentin 400 Mg Capsule) 800 mg PO TID [facility] Last Admin: 04/02/22 20:09 Dose: 800 mg Potassium Chloride 40 meq/ (Dextrose) 520 mls @ 130 mls/hr IV UD PRN PRN Reason: Potassium < 3 Magnesium Sulfate (Magnesium Sulfate) 2 gm in 50 mls @ 50 mls/hr IV UD PRN PRN Reason: Magnesium </= 1.6 Labetalol HCl (Labetalol 5 Mg/Ml Ml) 0 mg IV Q2HP PRN PRN Reason: Hypertension Levothyroxine Sodium (Levothyroxine 125 Mcg Tablet) 125 mcg PO QAMAC [facility] Last Admin: 04/03/22 07:05 Dose: 125 mcg Metoclopramide HCl (Metoclopramide 10 Mg/2 Ml Vial) 10 mg IV Q6HP PRN PRN Reason: Nausea And Vomiting Ondansetron HCl (Ondansetron 4 Mg/2 Ml Vial) 4 mg IV Q4HP PRN PRN Reason: Nausea And Vomiting Polyethylene Glycol (Polyethylene Glycol 3350 17 Gm Packet) 17 gm PO DAILYP PRN PRN Reason: Constipation Potassium Chloride (Potassium Chloride 20 Meq Tablet) 40 meq PO UD PRN PRN Reason: Potssium is 3-3.5 Potassium Chloride (Potassium Chloride 20 Meq Tablet) 40 meq PO UD PRN PRN Reason: Potassium < 3 Senna (Sennosides 1 Tablet) 2 tab PO DAILYP PRN PRN Reason: Constipation Sodium Chloride (0.9 % Sodium Chloride 10 Ml Syringe) 10 ml IV Q8 [facility] Last Admin: 04/03/22 05:54 Dose: Not Given A/P Narrative A/P Narrative: A: *Left periprosthetic humerus Fx: *Generalized weakness/deconditioning/debility: *?CUCO on CKD IIIb-IV: unknown baseline awaiting follow-up chemistry *Anemia, chronic: Dilutional component *UTI: Diagnosed at [facility] yesterday and started on Macrobid *CAD w/stent: *h/o diastolic(I) CHF: *Obesity: BMI 34 *VANESSA: *HTN/HLD: *Chronic pain: *Depression/anxiety: *Hypothyroidism: P: -Per Ortho, placed in sling and follow-up outpatient -IVF -Continue antibiotics for UTI, UC from [facility] -Follow-up renal function -hold lasix and acei for now -cont asa/statin -PT/OT -CM for placement -ppx: Lovenox Time Spent With Patient Time: Total time spent is greater than 50% in coordination of care (as documented) at patient's floor/unit and/or counseling patient: Total time spent with greater than 50% in coordination of care (as documented) at patient's floor/unit and/or counseling patient:: 25 - 35 minutes QUALITY VTE Deep Vein Thrombosis/Pulmonary Embolism Present on Admission: No
[2022-04-03] MEDS: ENOXAPARIN 40 MG/0.4 ML SYRINGE SQ SCH (08:20)
[2022-04-03] MEDS: GABAPENTIN 400 MG CAPSULE PO SCH ×3 (08:21→21:05)
[2022-04-03] MEDS: ASPIRIN 81 MG TAB.CHEW PO SCH (08:21)
[2022-04-03] MEDS: ATORVASTATIN 40 MG TABLET PO SCH (08:21)
[2022-04-03] MEDS: ALLOPURINOL 100 MG TABLET PO SCH (08:21)
[2022-04-03] MEDS: DOCUSATE SODIUM 100 MG CAPSULE PO SCH ×2 (08:21→21:05)
[2022-04-03] MEDS: FLUoxetine HCL 20 MG CAPSULE PO SCH (08:22)
[2022-04-03] MEDS: AMITRIPTYLINE 25 MG TABLET PO SCH (08:22)
[2022-04-03 08:27] LABS: ALT/SGPT 11 U/L (<40); AST/SGOT 19 U/L (<32); Albumin 3.1 gm/dL (3.2-5.2); Albumin/Globulin Ratio 1.1 (1.0-2.3); Alkaline Phosphatase 100 U/L (39-117); Bilirubin,Direct < 0.2 mg/dL (0-0.3); Bilirubin,Total 0.3 mg/dL (0.1-1.0); Blood Urea Nitrogen 14 mg/dL (8-23); Calcium 8.5 mg/dL (8.6-10.4); Carbon Dioxide 26 mmol/L (22-30); Chloride 104 mmol/L (96-108); Globulin 2.9 gm/dL (2.2-3.7); Glomerular Filtration Rate 40; Glucose 82 mg/dL (70-105); Lactate Dehydrogenase 170 U/L (135-225); Phosphorous 2.9 mg/dL (2.5-4.5); Triglycerides 58 mg/dL (<150); Uric Acid 5.7 mg/dL (2.5-8.0)
[2022-04-03] MEDS: fentaNYL 100 MCG/2 ML VIAL IV PRN (09:26)
[2022-04-03] MEDS: ACETAMINOPHEN 325 MG TABLET PO PRN ×2 (09:27→21:05)
--- NOTE | 2022-04-03 10:43 | Discharge Summary ---
Discharge Provider Provider IMPORTANT FOLLOW-UP INFORMATION FOR PCP: Patient information: Note initiated : 04/03/22 at 10:41 am Service Date, if different from initiated Date: [] Patient: Rosa Mariee a 71 y/o F admitted on 04/02/22 for upper extremity injury. Chief Complaint: [] Date of admission: 04/02/22 10:48 Discharge date: 04/04/22 Primary care physician: VELIA Raza Consults: 04/02/22 Consult to Physician [CONS] Stat Comment: Medical management of DM-II, HTN, etc Consulting Provider: Noe Pierce Reason For Exam: Physician to Consult COURSE Hospital Course Hospital course: History of present illness: Ms. Mariee is a 71 year old F Patient who recently was that [facility] for ground-level fall diagnosed T3-T4 compression fracture and UTI is d/c home and had another ground-level fall with deformity left upper arm She was getting out of a cab at her hotel after being discharged and she fell on her left arm. X-rays in the ED showed a periprosthetic comminuted displaced humeral fracture. Case discussed with Dr. Choe recommended patient be placed in sling and follow-up with surgeon who previously did her shoulder replacement Dr. Thomas. Patient unable ambulates as she requires a walker, given her fractured arm. ED requested admission for placement. Patient has headaches and dysuria but denies any other acute complaints. Does see Dr. Vaz for kidneys but has not seen him in at least a year. Creatinine in the ED was 1.7, unknown baseline. 10 Feeling a little better today. No overnight event or new complaints. Awaiting chemistry. Delusional anemia noted. 04/04 She feels about same as yesterday. No overnight or new complaints. Anemia but stable. Creatinine stable. 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: *Anemia, chronic: *UTI: Diagnosed at [facility] and started on Macrobid *CAD w/stent: *h/o diastolic(I) CHF: *Obesity: BMI 34 *VANESSA: *HTN/HLD: *Chronic pain: *Depression/anxiety: *Hypothyroidism: P: -Per Ortho, placed in sling and follow-up outpatient -finish antibiotics for UTI, UC from [facility] Discharge diagnosis: Left periprosthetic humeral fracture generalized weakness deconditioning de Secondary discharge diagnosis: Debility CUCO on CKD chronic anemia UTI CAD history of diastolic heart failure obesity obstructive sleep apnea hypertension chronic pain depression anxiety hypothyroidism Time Spent with Patient Time attestation: Total time spent providing and/or coordinating discharge services: Time spent: Greater than 30 minutes EXAM Constitutional Vitals: Temp Pulse Resp BP Pulse Ox O2 Del Method 97.4 F 88 16 119/74 93 04/03/22 09:00 04/03/22 09:00 04/03/22 09:00 04/03/22 09:00 04/03/22 09:00 04/03/22 09:00 Discharge Data Data Completed and Pending Labs on day of discharge: Labs from last 24 hours 04/03/22 04/03/22 05:47 05:47 WBC 5.4 RBC 2.90 L Hgb 7.9 L Hct 25.8 L MCV 89.0 MCH 27.2 MCHC 30.6 L RDW 18.0 H Plt Count 166 MPV 10.3 Immature Gran % (Auto) 0.4 Neut % (Auto) 51.7 Lymph % (Auto) 33.3 [place] % (Auto) 9.2 Eos % (Auto) 4.8 Baso % (Auto) 0.6 Lymph # (Auto) 1.81 [place] # (Auto) 0.50 Eos # (Auto) 0.26 Baso # (Auto) 0.03 Immature Gran # 0.02 Absolute Neutrophils 2.81 Sodium 138 Potassium 3.9 Chloride 104 Carbon Dioxide 26 Anion Gap 8.0 BUN 14 Creatinine 1.3 H GFR Calculation 40 Glucose 82 Uric Acid 5.7 Calcium 8.5 L Phosphorus 2.9 Magnesium 1.8 Total Bilirubin 0.3 Direct Bilirubin < 0.2 GGT 13 AST 19 ALT 11 Alkaline Phosphatase 100 Lactate Dehydrogenase 170 Total Protein 6.0 Albumin 3.1 L Globulin 2.9 Albumin/Globulin Ratio 1.1 Triglycerides 58 Discharge Plan Patient/Caregiver Discharge Instructions Activity: increase activity as tolerated Diet: Regular Diet Prescriptions: New levofloxacin 250 mg tablet 250 mg PO Q24H Qty: 1 0RF Rx Instructions: to take on 04/05/2022. Continued atorvastatin 80 mg tablet 80 mg PO DAILY Qty: 90 1RF allopurinol 100 mg tablet 100 mg PO QDAY Qty: 90 1RF amitriptyline 25 mg tablet 25 mg PO QDAY Qty: 90 1RF furosemide 20 mg tablet 20 mg PO DAILY Qty: 90 1RF gabapentin 800 mg tablet 800 mg PO TID Qty: 90 0RF lisinopril 10 mg tablet 10 mg PO DAILY Qty: 30 2RF aspirin 81 mg tablet,delayed release (DR/EC) 81 mg PO DAILY calcium carbonate [Calcium 500] 500 mg calcium (1,250 mg) tablet,chewable 500 mg PO BID cholecalciferol (vitamin D3) 2,000 unit capsule 2,000 unit PO DAILY fluoxetine 20 mg capsule 40 mg PO DAILY multivit with min-folic acid 200 MCG tablet,chewable 200 mcg PO DAILY levothyroxine 100 mcg tablet 125 mcg PO DAILY hydrocodone-acetaminophen 5-325 mg tablet 1 tab PO QHS PRN (Reason: pain) Qty: 20 0RF Follow Up Plan Follow up with: Crispin Thomas MD [Physician] - 04/06/22 (Left periprosthetic comminuted and displaced fracture of the mid to lateral humeral shaft) Mamadou Faulkner ARNP [Primary Care Provider] - Patient Disposition: Xfer SNF Prognosis: Fair Rehab Potential: Fair I certify that the patient requires SNF services: Yes Overall status at discharge: patient is progressing back to baseline Discharge Orders: Discharge Order (Routine); Ordered 04/04/22 Ordered By: Noe Pierce [facility] VTE Deep Vein Thrombosis/Pulmonary Embolism Present on Admission: No
[2022-04-03] MEDS: cefTRIAXone 1 GM VIAL IV SCH (11:19)
[2022-04-03] MEDS: HYDROcodone/APAP 5/325MG TABLET PO PRN (16:07)
[2022-04-03] MEDS ORDERED: HYDROcodone/APAP 5/325MG TABLET PO PRN (21:43)
[2022-04-03] MEDS ORDERED: HYDROcodone/APAP 5/325MG TABLET PO ONE (21:58)
[2022-04-04 06:15] LABS: Basophils # (Auto) 0.03 K/mcL (0.00-0.30); Basophils % (Auto) 0.5 % (0.0-2.0); Eosinophils # (Auto) 0.22 K/mcL (0.00-0.70); Eosinophils % (Auto) 3.9 % (0.0-7.0); Hematocrit 25.6 % (34.1-44.9); Hemoglobin 8.1 g/dL (11.2-15.7); Lymphocytes # (Auto) 2.06 K/mcL (1.50-4.80); Lymphocytes % (Auto) 36.9 % (15.5-49.0); Mean Cell Volume 88.6 fL (80.0-100.0); Mean Corpuscular HGB Conc 31.6 g/dL (31.0-36.0); Mean Platelet Volume 10.1 fL (8.8-12.5); Monocytes # (Auto) 0.61 K/mcL (0.10-0.90); Monocytes % (Auto) 10.9 % (1.0-12.0); Neutrophils % (Auto) 47.6 % (38.0-78.0); Platelet Count 173 K/mcL (140-440); RBC 2.89 M/mcL (3.59-5.38); Red Cell Distribution Width 17.9 % (11.5-14.5); WBC 5.6 K/mcL (4.5-11.0)
[2022-04-04] MEDS: 0.9 % SODIUM CHLORIDE 10 ML SYRINGE IV SCH ×2 (06:22→15:24)
[2022-04-04] MEDS: HYDROcodone/APAP 5/325MG TABLET PO PRN ×3 (06:22→14:58)
[2022-04-04 07:23] LABS: Blood Urea Nitrogen 17 mg/dL (8-23); Calcium 8.4 mg/dL (8.6-10.4); Carbon Dioxide 25 mmol/L (22-30); Chloride 101 mmol/L (96-108); Glomerular Filtration Rate 40; Glucose 81 mg/dL (70-105)
[2022-04-04] MEDS: LEVOTHYROXINE 125 MCG TABLET PO SCH (07:31)
--- NOTE | 2022-04-04 07:31 | Internal Med Progress Note ---
SUBJECTIVE Subjective Patient information: Note initiated : 04/04/22 at 7:30 am Service Date, if different from initiated Date: [] Patient: Rosa Mariee a 71 y/o F admitted on 04/02/22 for upper extremity injury. Chief Complaint: [] Interval history: History of present illness: Ms. Mariee is a 71 year old F Patient who recently was that [facility] for ground-level fall diagnosed T3-T4 compression fracture and UTI is d/c home and had another ground-level fall with deformity left upper arm She was getting out of a cab at her hotel after being discharged and she fell on her left arm. X-rays in the ED showed a periprosthetic comminuted displaced humeral fracture. Case discussed with Dr. Choe recommended patient be placed in sling and follow-up with surgeon who previously did her shoulder replacement Dr. Thomas. Patient unable ambulates as she requires a walker, given her fractured arm. ED requested admission for placement. Patient has headaches and dysuria but denies any other acute complaints. Does see Dr. Vaz for kidneys but has not seen him in at least a year. Creatinine in the ED was 1.7, unknown baseline. 04/03 Feeling a little better today. No overnight event or new complaints. Awaiting chemistry. Delusional anemia noted. 04/04 She fell about same as yesterday. No overnight or new complaints. Anemia but stable. Creatinine stable. Review of Systems: denies headache/fever/chills/nausea/vomiting/chest or abdominal pain/cough/dyspnea/diarrhea. Otherwise see above. Constitutional Vitals: Vital Signs Temp Pulse Resp BP Pulse Ox O2 Del Method 97.8 F 73 20 113/68 94 04/04/22 04:00 04/04/22 04:00 04/04/22 04:00 04/04/22 04:00 04/04/22 04:00 04/04/22 04:00 Period Temp Pulse Resp BP Sys/Sánchez Pulse Ox O2 Del Method O2 Flow Rate Last 24 Hr 97.4 F-99.8 F 73-88 16-20 96-119/60-74 92-98 Room Air-Room Air Intake and Output 04/03/22 04/04/22 04/04/22 21:59 05:59 13:59 Intake Total 1120 480 Output Total 301 3 Balance 819 477 Weight 88.451 kg Intake & Output: Intake & Output 04/03/22 04/04/22 04/04/22 21:59 05:59 13:59 Intake Total 1120 480 Output Total 301 3 Balance 819 477 Weight 88.451 kg Intake: Oral 1120 480 Output: Void Amount 300 # of times incontinent of urine 1 3 Other: Meal Lunch Percent of Meal Consumed 100% Feeding Ability Independent Urine Appearance Clear Urine Color Yellow Bright Yellow Urine Odor Normal Stool Size Large Stool Color Brown Ananda Colored Stool Consistency Formed # Voids 2 # Bowel Movements 1 Exam: General: Alert, Awake, No acute Distress, obese Eyes/N/T: EOMI, Head/Neck: neck supple, CV: RRR, 1/6SM, Pulm: Clear b/l, no wheezing/rhonchi/rales Abd: soft, nontender, +BS x4 Ext: no clubbing/cyanosis/edema. Left arm in a sling Neuro: Alert, no focal deficits, moves all extremities, Skin: warm/dry OBJ DATA Labs CBC & Chem 7: 04/04/22 05:38 04/04/22 05:38 Labs: Abnormal Lab Results 04/04/22 04/04/22 04/03/22 05:38 05:38 05:47 RBC 2.89 L Hgb 8.1 L Hct 25.6 L POC Hct MCHC RDW 17.9 H Creatinine 1.3 H 1.3 H POC Creatinine Calcium 8.4 L 8.5 L POC WB Ioniz Calcium Albumin 3.1 L 04/03/22 04/02/22 04/02/22 05:47 05:09 05:04 RBC 2.90 L Hgb 7.9 L Hct 25.8 L POC Hct 31.0 L MCHC 30.6 L RDW 18.0 H Creatinine 1.7 H POC Creatinine 1.7 H Calcium POC WB Ioniz Calcium 1.09 L Albumin 04/02/22 05:04 RBC Hgb 9.8 L Hct 33.1 L POC Hct MCHC 29.6 L RDW 17.8 H Creatinine POC Creatinine Calcium POC WB Ioniz Calcium Albumin Meds: Medications Acetaminophen (Acetaminophen 325 Mg Tablet) 650 mg PO Q6HP PRN; Protocol PRN Reason: Per Pain Protocol/Fever > 101 Last Admin: 04/03/22 21:05 Dose: 650 mg Hydrocodone Bitart/Acetaminophen (Hydrocodone/Apap 5/325mg Tablet) 1 tab PO Q4HP PRN PRN Reason: Pain Last Admin: 04/04/22 06:22 Dose: 1 tab Albuterol/Ipratropium (Ipratropium/Albuterol 3 Ml Ampul.Neb) 3 ml NEB Q4HP PRN PRN Reason: Shortness Of Breath Allopurinol (Allopurinol 100 Mg Tablet) 100 mg PO QDAY [facility] Last Admin: 04/03/22 08:21 Dose: 100 mg Amitriptyline HCl (Amitriptyline 25 Mg Tablet) 25 mg PO QDAY [facility] Last Admin: 04/03/22 08:22 Dose: 25 mg Aspirin (Aspirin 81 Mg Tab.Chew) 81 mg PO DAILY [facility] Last Admin: 04/03/22 08:21 Dose: 81 mg Atorvastatin Calcium (Atorvastatin 40 Mg Tablet) 80 mg PO DAILY [facility] Last Admin: 04/03/22 08:21 Dose: 80 mg Ceftriaxone Sodium (Ceftriaxone 1 Gm Vial) 1 gm IV Q24H [facility] Last Admin: 04/03/22 11:19 Dose: 1 gm Docusate Sodium (Docusate Sodium 100 Mg Capsule) 100 mg PO BID [facility] Last Admin: 04/03/22 21:05 Dose: 100 mg Enoxaparin Sodium (Enoxaparin 40 Mg/0.4 Ml Syringe) 40 mg SQ DAILY [facility] Last Admin: 04/03/22 08:20 Dose: 40 mg Fentanyl (Fentanyl 100 Mcg/2 Ml Vial) 25 - 50 mcg IV Q2HP PRN; Protocol PRN Reason: Per Pain Protocol Last Admin: 04/03/22 09:26 Dose: 25 mcg Fluoxetine HCl (Fluoxetine Hcl 20 Mg Capsule) 40 mg PO DAILY [facility] Last Admin: 04/03/22 08:22 Dose: 40 mg Gabapentin (Gabapentin 400 Mg Capsule) 800 mg PO TID [facility] Last Admin: 04/03/22 21:05 Dose: 800 mg Potassium Chloride 40 meq/ (Dextrose) 520 mls @ 130 mls/hr IV UD PRN PRN Reason: Potassium < 3 Magnesium Sulfate (Magnesium Sulfate) 2 gm in 50 mls @ 50 mls/hr IV UD PRN PRN Reason: Magnesium </= 1.6 Labetalol HCl (Labetalol 5 Mg/Ml Ml) 0 mg IV Q2HP PRN PRN Reason: Hypertension Levothyroxine Sodium (Levothyroxine 125 Mcg Tablet) 125 mcg PO QAMAC [facility] Last Admin: 04/03/22 07:05 Dose: 125 mcg Metoclopramide HCl (Metoclopramide 10 Mg/2 Ml Vial) 10 mg IV Q6HP PRN PRN Reason: Nausea And Vomiting Ondansetron HCl (Ondansetron 4 Mg/2 Ml Vial) 4 mg IV Q4HP PRN PRN Reason: Nausea And Vomiting Polyethylene Glycol (Polyethylene Glycol 3350 17 Gm Packet) 17 gm PO DAILYP PRN PRN Reason: Constipation Potassium Chloride (Potassium Chloride 20 Meq Tablet) 40 meq PO UD PRN PRN Reason: Potssium is 3-3.5 Potassium Chloride (Potassium Chloride 20 Meq Tablet) 40 meq PO UD PRN PRN Reason: Potassium < 3 Senna (Sennosides 1 Tablet) 2 tab PO DAILYP PRN PRN Reason: Constipation Sodium Chloride (0.9 % Sodium Chloride 10 Ml Syringe) 10 ml IV Q8 [facility] Last Admin: 04/04/22 06:22 Dose: 10 ml A/P Narrative A/P Narrative: A: *Left periprosthetic humerus Fx: *Generalized weakness/deconditioning/debility: *CUCO on CKD IIIb: *Anemia, chronic: Dilutional component *UTI: Diagnosed at [facility] yesterday and started on Macrobid *CAD w/stent: *h/o diastolic(I) CHF: *Obesity: BMI 34 *VANESSA: *HTN/HLD: *Chronic pain: *Depression/anxiety: *Hypothyroidism: P: -Per Ortho, placed in sling and follow-up outpatient -s/p IVF -Continue antibiotics for UTI, UC from [facility] -Follow-up renal function -hold lasix and acei for now -cont asa/statin -PT/OT -CM for placement -ppx: Lovenox Time Spent With Patient Time: Total time spent is greater than 50% in coordination of care (as documented) at patient's floor/unit and/or counseling patient: QUALITY VTE Deep Vein Thrombosis/Pulmonary Embolism Present on Admission: No
[2022-04-04] MEDS: ENOXAPARIN 40 MG/0.4 ML SYRINGE SQ SCH (10:01)
[2022-04-04] MEDS: ATORVASTATIN 40 MG TABLET PO SCH (10:02)
[2022-04-04] MEDS: AMITRIPTYLINE 25 MG TABLET PO SCH (10:02)
[2022-04-04] MEDS: ASPIRIN 81 MG TAB.CHEW PO SCH (10:02)
[2022-04-04] MEDS: ALLOPURINOL 100 MG TABLET PO SCH (10:02)
[2022-04-04] MEDS: cefTRIAXone 1 GM VIAL IV SCH (10:02)
[2022-04-04] MEDS: GABAPENTIN 400 MG CAPSULE PO SCH ×2 (10:02→14:59)
[2022-04-04] MEDS: FLUoxetine HCL 20 MG CAPSULE PO SCH (10:02)
[2022-04-04] MEDS: DOCUSATE SODIUM 100 MG CAPSULE PO SCH (10:02)
[2022-04-04] MEDS ORDERED: cefTRIAXone 1 GM VIAL IV ONE (15:40)
== END 2022-04-04 16:10 ==
LOC: ED 03:58 → MEDSUR 03:58
PROVIDERS: ADMIT Internal Medicine; ATTEND Internal Medicine